=== PATIENT | female | born 1995 | race African-American/Black ===

== ENCOUNTER 2017-05-29 15:14 | Emergency (ER) | payer BC ==
[~2017-05-29] VITALS: Ht 152.4 cm; Wt 127.0 kg
[2017-05-29 15:25] VITALS: BP 149/79
--- NOTE | 2017-05-29 15:57 | RAD ---
Indication knee pain. No history of recent injury. AP oblique and lateral views of the right knee were obtained as well as a sunrise view No bony abnormality is seen
[2017-05-29] MEDS ORDERED: DICL50TA4 PO (16:20)
--- NOTE | 2017-05-29 16:21 | PHYS DOC ---
Past Medical History Past Medical History: Asthma, Other Additional Past Medical Histor: seasonal allergies Past Surgical History: Other Additional Past Surgical Histo: nasal sugery,oral surgery Alcohol Use: Rarely Drug Use: None Adult General Chief Complaint Chief Complaint: KNEE INJURY HPI HPI Patient is a 22 year old female who presents with history of asthma who presents today with mild to moderate right knee pain that has been going on for 2 days. Patient denies any trauma. Review of Systems Review of Systems Constitutional: Denies fever or chills [] Musculoskeletal: mild to moderate right knee pain Integument: Denies rash or skin lesions [] Neurologic: Denies headache, focal weakness or sensory changes [] Allergies Allergies Allergies Coded Allergies Type Severity Reaction Last Updated Verified Iodine and Iodide Containing Produc Allergy Severe anaphylaxis 05/29/17 Yes peanut Allergy Severe anaphylaxis 05/29/17 Yes shellfish derived Allergy Severe anaphylaxis 05/29/17 Yes Uncoded Allergies Type Severity Reaction Last Updated Verified dairy products Allergy Severe anaphylaxis 05/29/17 seafood Allergy Severe anaphylaxis 05/29/17 Physical Exam Physical Exam Constitutional: Well developed, well nourished, no acute distress, non-toxic appearance. [] Skin: Warm, dry, no erythema, no rash. [] Back: No tenderness, no CVA tenderness. [] Extremities: Overweight patient. Right knee with no obvious deformity. Tenderness diffusely throughout the knee. Full range of motion to the right knee though the exam is difficult due to weight. Negative Linda sign and negative Marlee's sign negative anterior-posterior drawer sign to the right knee. +2 right pedal pulse. Cap refill less than 2 seconds the right toes. Neurologic: Alert and oriented X 3, normal motor function, normal sensory function, no focal deficits noted. [] Psychologic: Affect normal, judgement normal, mood normal. [] Current Patient Data Vital Signs Vital Signs Date Time Temp Pulse Resp B/P (MAP) Pulse Ox O2 Delivery O2 Flow Rate FiO2 05/29/17 15:25 97.8 90 20 98 Room Air 97.8 EKG EKG [] Radiology/Procedures Radiology/Procedures [] Course & Med Decision Making Course & Med Decision Making Pertinent Labs and Imaging studies reviewed. (See chart for details) Patient is in the ED with the right knee pain. No known injury. Right knee x- rays interpreted by radiologist were negative for any acute findings. This is an overweight patient. Recommended exercise and diet. Discharged with diclofenac. Instructed recommended to the right knee as tolerated. Follow-up with orthopedic doctor in one week if pain continues. Dragon Disclaimer Alonsoon Disclaimer This electronic medical record was generated, in whole or in part, using a voice recognition dictation system. Departure Departure Impression: Primary Impression: Right knee pain Disposition: HOME, SELF-CARE Condition: STABLE Referrals: NO PCP (PCP) ARLINE ORONA MD Follow-up in one week Patient Instructions: Knee Pain Additional Instructions: You were seen for right knee pain. Right knee x-rays are negative for any acute findings. Try and exercise as tolerated. Ice and elevate the affected extremity. Take the prescribed medicine as needed for pain. Follow-up with the provided orthopedic doctor in the next 1-2 weeks. Scripts Diclofenac Sodium (DICLOFENAC SODIUM) 50 Mg Tablet.dr 1 TAB PO BID, #60 TAB 1 Refill Prov: KATHRYN MENARD APRN 05/29/17 Problem Qualifiers Primary Impression: Right knee pain Chronicity: acute Qualified Codes: M25.561 - Pain in right knee TOBIASMICHAELKATHRYN Rawls APRN May 29, 2017 16:20
== END 2017-05-29 16:26 | disposition home or self-care (01) ==
LOC: ER 15:14
DX: M25.561 Pain in right knee (principal); J45.909 Unspecified asthma, uncomplicated; Z91.041 Radiographic dye allergy status; Z91.011 Allergy to milk products; Z91.010 Allergy to peanuts; Z91.013 Allergy to seafood
CPT/HCPCS: 73564; 99284

== ENCOUNTER 2017-06-18 21:04 | Emergency (ER) | payer BC ==
[~2017-06-18] VITALS: Ht 152.4 cm; Wt 127.0 kg
[~2017-06-18 21:04] MED LIST: DICL50TA4 PO
[2017-06-18] MEDS ORDERED: oxyCODONE/APAP 5/325 1 TAB TABLET PO ONE (21:30)
[2017-06-18] MEDS ORDERED: ONDANSETRON ODT 4 MG TAB.RAPDIS. PO ONE (21:30)
[2017-06-18 21:33] LABS: BILIRUBIN,URINE NEGATIVE (NEG); GLUCOSE,URINE NEGATIVE (NEG); NITRITE,URINE NEGATIVE (NEG); PROTEIN,URINE NEGATIVE (NEG-TRACE); UROBILINOGEN,URINE 0.2 mg/dL (0.2 mg/dL)
[2017-06-18 21:39] LABS: BACTERIA,URINE FEW /HPF (0-FEW); RBC,URINE OCC /HPF (0-2); SQUAMOUS EPITHELIAL CELL,UR MOD /LPF
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
[2017-06-18 22:13] VITALS: BP 140/100
--- NOTE | 2017-06-19 06:55 | EKG ---
[facility] [address] [place] [address] Test Date: 2017-06-18 Test Time: 21:58:29 Pat Name: JOAQUIN BARRIGA Department: Room: Gender: F [employer]: : 1995 Requested By: TAE SONG Order Number: [id number] Reading MD: Eve Alexis Measurements Intervals [place] Rate: 78 P: 48 TX: 152 QRS: 49 QRSD: 88 T: 31 QT: 410 QTc: 471 Interpretive Statements SINUS RHYTHM NORMAL EKG Electronically Signed On 06-21-2017 10:25:46 CDT by Eve Alexis
== END 2017-06-18 22:13 | disposition home or self-care (01) ==
LOC: ER 21:04
DX: S06.0X0A Concussion without loss of consciousness, initial encounter (principal); J45.909 Unspecified asthma, uncomplicated; Z91.041 Radiographic dye allergy status; Z91.011 Allergy to milk products; Z91.010 Allergy to peanuts; Z91.013 Allergy to seafood; W20.8XXA Other cause of strike by thrown, projected or falling object, initial encounter; Y93.89 Activity, other specified; Y92.89 Other specified places as the place of occurrence of the external cause; Y99.8 Other external cause status
CPT/HCPCS: 81001; 81025; 93005; 99285; Q0162